=== PATIENT | female | born 1980 | race Native Hawaiian/Other Pacific Islander ===

== ENCOUNTER → 2017-08-28 | Outpatient (CLI) | payer OTHER, SELFPAY ==
[~2017-08-28] MED LIST: ALPR1 PO; AMOCLA875 PO; ANTOXYBENA RIGHTEAR; Advil200 M1 PO; Amoxicillin500 MG PO; BCP'S; Bactrim Ds Tab1 EACH PO; CEPH500 PO; CYCL10 PO; Ciprodex Otic7.5 ML RIGHTEAR; Clomipramine HC25 MG PO; Dazidox10 MG PO; FLEXERIL; GABA300 PO; GABAPENTIN; HYDACE10B PO; HYDACE5 PO; IBUP600 PO; IBUP800 PO; LAMO50 PO; LORA1 PO; NAPR500 PO; OXYACE5T PO; OXYC5 PO; PENVK500 PO; PHENTERMINE; PROACE100 PO; RANI150 PO; RXALBOI INH; TRAM50 PO; Tri-Sprintec1 EACH PO; VENL25 PO; VENLAFAXINE H37.5 MG PO; Verotin-Gr Cap1 EACH PO
== END | disposition home or self-care (01) ==
LOC: LAB EV 09:23
DX: R31.9 Hematuria, unspecified (principal)
CPT/HCPCS: 87086

== ENCOUNTER → 2017-11-13 | Outpatient (CLI) | payer OTHER | END | disposition home or self-care (01) | LOC: LAB EV 13:28 → LAB SHORT 13:28 | DX: N39.0 Urinary tract infection, site not specified (principal) | CPT/HCPCS: 87077; 87086; 87186 ==

== ENCOUNTER → 2019-01-22 | Outpatient (CLI) | payer OTHER ==
[2019-01-23 13:13] LABS: Campylobacter Sp Not Detected (NOT DETECT)
[2019-01-23 13:14] LABS: Adenovirus F 40/41 Not Detected (NOT DETECT); Astrovirus Not Detected (NOT DETECT); Cryptosporidium Not Detected (NOT DETECT); Cyclospora Cayetanensis Not Detected (NOT DETECT); E. Coli O157 Not Detected (NOT DETECT); Entamoeba Histolytica Not Detected (NOT DETECT); Enteroaggregative E. coli-EAEC Not Detected (NOT DETECT); Enteropathogenic E. coli-EPEC Detected (NOT DETECT); Enterotoxigenic E. coli-ETEC Not Detected (NOT DETECT); Giardia Lamblia Not Detected (NOT DETECT); Norovirus GI/GII Not Detected (NOT DETECT); Plesiomonas Shigelloides Not Detected (NOT DETECT); Rotavirus A Not Detected (NOT DETECT); Salmonella Sp Not Detected (NOT DETECT); Sapovirus Not Detected (NOT DETECT); Shiga Toxin-prod E. coli-STEC Not Detected (NOT DETECT); Shigella/Enteroin E. coli-EIEC Not Detected (NOT DETECT); Vibrio Cholerae Not Detected (NOT DETECT); Vibrio Sp Not Detected (NOT DETECT); Yersinia Enterocolitica Not Detected (NOT DETECT)
== END | disposition home or self-care (01) ==
LOC: LAB EV 20:00
PROVIDERS: General Practice
DX: K52.9 Noninfective gastroenteritis and colitis, unspecified (principal)
CPT/HCPCS: 0097U

== ENCOUNTER → 2019-01-22 | Outpatient (CLI) | payer OTHER ==
[2019-01-22 09:23] LABS: BASOPHILS ABSOLUTE AUTO 0.02 K/mm3 (0.00-0.23); BASOPHILS PERCENT AUTO 1 % (0-2); EOSINOPHILS ABSOLUTE AUTO 0.08 K/mm3 (0.00-0.68); EOSINOPHILS PERCENT AUTO 2 % (0-6); Hematocrit 41.6 % (33.0-51.0); Hemoglobin 14.2 g/dL (11.5-16.0); IMMATURE GRAN ABSOLUTE AUTO 0.01 K/mm3 (0.00-0.10); IMMATURE GRAN PERCENT AUTO 0 % (0-1); LYMPHOCYTES ABSOLUTE AUTO 1.21 K/mm3 (0.84-5.20); LYMPHOCYTES PERCENT AUTO 27 % (21-46); MONOCYTES ABSOLUTE AUTO 0.69 K/mm3 (0.16-1.47); MONOCYTES PERCENT AUTO 16 % (4-13); Mean Corpuscular HGB 31.3 pg (26.0-34.0); Mean Corpuscular HGB Conc 34.1 g/dL (31.5-36.5); Mean Corpuscular Volume 92 fL (80-100); Mean Platelet Volume 9.5 fL (9.1-12.4); NEUTROPHILS ABSOLUTE AUTO 2.41 K/mm3 (1.96-9.15); NEUTROPHILS PERCENT AUTO 55 % (41-73); Platelet Count 204 K/mm3 (150-400); RDW Coefficient Variation 11.6 % (11.7-14.2); RDW Standard Deviation 39.1 fL (35.1-46.3); Red Blood Cell Count 4.54 M/mm3 (3.80-5.20); White Blood Cell Count 4.42 K/mm3 (4.00-11.30)
[2019-01-22 09:34] LABS: Alanine Aminotransfer (ALT/SGP 42 U/L (12-78); Albumin, Blood 3.5 g/dL (3.4-5.0); Albumin/Globulin Ratio 0.9 (0.8-1.8); Alk Phos 66 U/L (40-126); Anion Gap 10 mmol/L (6-16); Aspartate Aminotrans (AST/SGOT 27 U/L (12-37); Bilirubin, Total 0.4 mg/dL (0.1-1.0); Blood Urea Nitrogen 8 mg/dL (8-24); CO2, Blood 24 mmol/L (21-32); Calcium, Blood 8.5 mg/dL (8.5-10.1); Chloride, Blood 104 mmol/L (98-108); Creatinine, Blood 0.73 mg/dL (0.40-1.00); Globulin, Blood 3.9 g/dL (2.2-4.0); Glomerular Filtration Rate >60 (60-); Glucose, Blood 96 mg/dL (70-99); Potassium, Blood 3.9 mmol/L (3.5-5.5); Sodium, Blood 138 mmol/L (136-145); Total Protein, Blood 7.4 g/dL (6.4-8.2)
== END | disposition home or self-care (01) ==
LOC: LAB EV 09:17 → LAB SHORT 09:17
PROVIDERS: General Practice
DX: K52.9 Noninfective gastroenteritis and colitis, unspecified (principal)
CPT/HCPCS: 80053; 85025

== ENCOUNTER 2019-07-02 09:26 | Observation (INO) | payer OTHER ==
[~2019-07-02] VITALS: Ht 177.8 cm; Wt 132.6 kg
[2019-07-02] MEDS ORDERED: SUMA25 PO (10:18)
[2019-07-02] MEDS ORDERED: B Complex-Foli1 EACH PO (10:19)
[2019-07-02] MEDS ORDERED: OXYC5 PO (10:19)
[2019-07-02] MEDS ORDERED: MAGNESIUM (10:20)
[2019-07-02] MEDS ORDERED: POTASSIUM (10:20)
[2019-07-02 10:22] LABS: Source, Urine Clean Catch
[2019-07-02 10:26] LABS: BASOPHILS ABSOLUTE AUTO 0.04 K/mm3 (0.00-0.23); BASOPHILS PERCENT AUTO 0 % (0-2); EOSINOPHILS ABSOLUTE AUTO 0.11 K/mm3 (0.00-0.68); EOSINOPHILS PERCENT AUTO 1 % (0-6); Hematocrit 41.7 % (33.0-51.0); Hemoglobin 14.4 g/dL (11.5-16.0); IMMATURE GRAN ABSOLUTE AUTO 0.03 K/mm3 (0.00-0.10); IMMATURE GRAN PERCENT AUTO 0 % (0-1); LYMPHOCYTES ABSOLUTE AUTO 2.16 K/mm3 (0.84-5.20); LYMPHOCYTES PERCENT AUTO 22 % (21-46); MONOCYTES PERCENT AUTO 8 % (4-13); Mean Corpuscular HGB 31.1 pg (26.0-34.0); Mean Corpuscular HGB Conc 34.5 g/dL (31.5-36.5); Mean Corpuscular Volume 90 fL (80-100); Mean Platelet Volume 9.1 fL (9.1-12.4); NEUTROPHILS ABSOLUTE AUTO 6.65 K/mm3 (1.96-9.15); NEUTROPHILS PERCENT AUTO 68 % (41-73); Platelet Count 244 K/mm3 (150-400); RDW Coefficient Variation 11.5 % (11.7-14.2); RDW Standard Deviation 37.8 fL (35.1-46.3); Red Blood Cell Count 4.63 M/mm3 (3.80-5.20); White Blood Cell Count 9.79 K/mm3 (4.00-11.30)
[2019-07-02 10:30] LABS: Bilirubin, Urine Neg (Neg); Blood, Urine 4+ (Neg); Glucose Qualitative, Urine Neg (Neg); Ketones, Urine 3+ (Neg); Leukocyte Esterase, Urine Neg (Neg); Nitrite, Urine Neg (Neg); Protein, Urine Neg (Neg); Urobilinogen, Urine NORM (Normal)
[2019-07-02 10:37] LABS: Appearance, Urine Clear (Clear); Color, Urine Yellow (P-Yellow)
[2019-07-02 10:39] LABS: Bacteria Few /hpf; Squamous Epithelial Cells Mod /hpf (Few); White Blood Cells, Urine 0-2 /hpf (0-5)
[2019-07-02 10:55] LABS: Alanine Aminotransfer (ALT/SGP 33 U/L (12-78); Albumin, Blood 3.7 g/dL (3.4-5.0); Albumin/Globulin Ratio 1.1 (0.8-1.8); Alk Phos 48 U/L (50-136); Anion Gap 7 mmol/L (6-16); Aspartate Aminotrans (AST/SGOT 17 U/L (12-37); Bilirubin, Total 0.5 mg/dL (0.1-1.0); Blood Urea Nitrogen 8 mg/dL (8-24); CO2, Blood 25 mmol/L (21-32); Calcium, Blood 8.9 mg/dL (8.5-10.1); Chloride, Blood 108 mmol/L (98-108); Creatinine, Blood 0.57 mg/dL (0.40-1.00); Globulin, Blood 3.5 g/dL (2.2-4.0); Glomerular Filtration Rate >60 (60-); Glucose, Blood 89 mg/dL (70-99); Potassium, Blood 4.1 mmol/L (3.5-5.5); Sodium, Blood 140 mmol/L (136-145); Total Protein, Blood 7.2 g/dL (6.4-8.2)
--- NOTE | 2019-07-02 14:48 | NUR ---
Patient up to Ambulate independently. Gait steady. Surgical site prepped with 2% Chlorhexidine cloth wipe. History, Chart, Medications and Allergies reviewed before start of procedure.Lungs clear T/O to Auscultation. Patient confirms NPO status and agrees with scheduled surgery. ALL BELONGINGS INCLUDING RING AND PHONE GIVEN TO . UP TO VOID. REMOVED TAMPON AND PLACED PALAK PAD WITH MADONNA PANTIES.
--- NOTE | 2019-07-02 19:00 | NUR ---
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 VSS. DRESSINGS TO ABD D&I. PATIENT STATES NAUSEA RESOLVED, TAKING PO SLOWLY. WILL REPORT TO PRINCESS MENDOZA.
--- NOTE | 2019-07-03 06:15 | NUR ---
SUMMARY PT VERB ADEQUATE PAIN CONTROL WITH PO MEDS. DENIES NAUSEA. VOIDING WITHOUT DIFF.AMBULATING WITH SBA.
[2019-07-03] MEDS ORDERED: Folic Acid-Vit1 EACH PO (08:55)
[2019-07-03] MEDS ORDERED: DOCU100 PO (08:56)
[2019-07-03] MEDS ORDERED: Percocet 5-3251 EACH PO ×2 (08:57→09:17)
--- NOTE | 2019-07-03 09:44 | NUR ---
PATIENT D/C'D HOME WITH SO AT THIS TIME. PAIN CONTROLLED PER PATIENT. TOLERATING PO. VOIDING. PATIENT STATES UNDERSTANDING OF MEDS, WOUND CARE, ACTIVITY, F/U APPT, ETC. NO ACUTE CHANGES OR C/O.
== END 2019-07-03 09:45 | disposition home or self-care (01) ==
LOC: ER 09:26 → SURS 13:50 → ER 13:50 → SURS 17:10
PROVIDERS: Emergency Medicine; ADMIT Surgery
PROC: 0DTJ4ZZ Resection of Appendix, Percutaneous Endoscopic Approach (ICD-10-PCS; principal; 2019-07-02 14:30)
PROC: 0WQF0ZZ Repair Abdominal Wall, Open Approach (ICD-10-PCS; principal; 2019-07-02 14:30)
DX: K35.80 Unspecified acute appendicitis (principal); E66.9 Obesity, unspecified; G89.29 Other chronic pain; F17.200 Nicotine dependence, unspecified, uncomplicated; Z68.41 Body mass index [BMI] 40.0-44.9, adult; Z88.8 Allergy status to other drugs, medicaments and biological substances
CPT/HCPCS: 36415; 74176; 80053; 81001; 81025; 83690; 85025; 88304; 96361; 96365; 96366; 96372; 96374; 96375; 96376; 99285-25; A9270-GY; G0378; J0694; J1100; J1650; J1885; J2250; J2270; J2405; J2704; J2710; J3010; J7120

== ENCOUNTER → 2019-07-08 | Outpatient (CLI) | payer OTHER ==
[~2019-07-08] MED LIST changes: +B Complex-Foli1 EACH PO; +DOCU100 PO; +Folic Acid-Vit1 EACH PO; +MAGNESIUM; +POTASSIUM; +Percocet 5-3251 EACH PO; +SUMA25 PO
[2019-07-09 14:07] LABS: HPV 16 Negative (Negative); HPV 18 Negative (Negative); HPV OTHER HR TYPES Negative (Negative)
== END | disposition home or self-care (01) ==
LOC: LAB 11:30 → LAB SHORT 11:30
PROVIDERS: Obstetrics & Gynecology
DX: Z01.419 Encounter for gynecological examination (general) (routine) without abnormal findings (principal)
CPT/HCPCS: 87624; G0123

== ENCOUNTER 2019-11-17 08:14 | Emergency (ER) | payer OTHER ==
[~2019-11-17] VITALS: Ht 177.8 cm; Wt 98.4 kg
== END 2019-11-17 10:27 | disposition home or self-care (01) ==
LOC: ER 08:14
DX: G43.909 Migraine, unspecified, not intractable, without status migrainosus (principal); F32.9 Major depressive disorder, single episode, unspecified; F41.9 Anxiety disorder, unspecified; M51.26 Other intervertebral disc displacement, lumbar region; Z88.8 Allergy status to other drugs, medicaments and biological substances; Z79.899 Other long term (current) drug therapy; Z87.891 Personal history of nicotine dependence
CPT/HCPCS: 96372-59; 99283-25; J0780; J1200; J1885

== ENCOUNTER 2020-06-06 13:16 | Emergency (ER) | payer OTHER ==
[~2020-06-06] VITALS: Ht 177.8 cm; Wt 129.3 kg
[2020-06-06 13:54] LABS: BASOPHILS ABSOLUTE AUTO 0.02 K/mm3 (0.00-0.23); BASOPHILS PERCENT AUTO 0 % (0-2); EOSINOPHILS ABSOLUTE AUTO 0.13 K/mm3 (0.00-0.68); EOSINOPHILS PERCENT AUTO 2 % (0-6); Hemoglobin 13.6 g/dL (11.5-16.0); IMMATURE GRAN ABSOLUTE AUTO 0.02 K/mm3 (0.00-0.10); IMMATURE GRAN PERCENT AUTO 0 % (0-1); LYMPHOCYTES ABSOLUTE AUTO 2.38 K/mm3 (0.84-5.20); LYMPHOCYTES PERCENT AUTO 31 % (21-46); MONOCYTES ABSOLUTE AUTO 0.61 K/mm3 (0.16-1.47); MONOCYTES PERCENT AUTO 8 % (4-13); Mean Corpuscular HGB 31.6 pg (26.0-34.0); Mean Corpuscular Volume 93 fL (80-100); Mean Platelet Volume 9.4 fL (9.1-12.4); NEUTROPHILS ABSOLUTE AUTO 4.41 K/mm3 (1.96-9.15); NEUTROPHILS PERCENT AUTO 58 % (41-73); Platelet Count 210 K/mm3 (150-400); RDW Coefficient Variation 11.4 % (11.7-14.2); RDW Standard Deviation 38.6 fL (35.1-46.3); White Blood Cell Count 7.57 K/mm3 (4.00-11.30)
[2020-06-06 14:12] LABS: Alanine Aminotransfer (ALT/SGP 24 U/L (12-78); Albumin, Blood 3.4 g/dL (3.4-5.0); Alk Phos 71 U/L (50-136); Anion Gap 4 mmol/L (6-16); Aspartate Aminotrans (AST/SGOT 25 U/L (12-37); Bilirubin, Total 0.2 mg/dL (0.1-1.0); Blood Urea Nitrogen 7 mg/dL (8-24); Bun/Creatinine Ratio 12.4 (12.0-20.0); CO2, Blood 29 mmol/L (21-32); Calcium, Blood 8.5 mg/dL (8.5-10.1); Chloride, Blood 106 mmol/L (98-108); Creatinine, Blood 0.56 mg/dL (0.40-1.00); Globulin, Blood 3.5 g/dL (2.2-4.0); Glomerular Filtration Rate >60 (60-); Glucose, Blood 94 mg/dL (70-99); Potassium, Blood 3.9 mmol/L (3.5-5.5); Sodium, Blood 139 mmol/L (136-145); Total Protein, Blood 6.9 g/dL (6.4-8.2)
== END 2020-06-06 14:27 | disposition left against medical advice (07) ==
LOC: ER 13:16
PROVIDERS: Emergency Medicine
DX: R51.9 Headache, unspecified (principal); Z53.21 Procedure and treatment not carried out due to patient leaving prior to being seen by health care provider
CPT/HCPCS: 36415; 80053; 85025

== ENCOUNTER 2020-11-06 06:10 | Emergency (ER) | payer OTHER ==
[~2020-11-06] VITALS: Ht 177.8 cm; Wt 129.7 kg
[2020-11-06] MEDS ORDERED: ZEBUTAL 50-3251 EAC1 PO (07:01)
[2020-11-06] MEDS ORDERED: PROM25 PO (07:01)
== END 2020-11-06 07:15 | disposition home or self-care (01) ==
LOC: ER 06:10
DX: G43.909 Migraine, unspecified, not intractable, without status migrainosus (principal)
CPT/HCPCS: 96372; 99283-25; A9270; J1885

== ENCOUNTER → 2021-01-31 | Outpatient (CLI) | payer OTHER ==
[~2021-01-31] MED LIST changes: +PROM25 PO; +ZEBUTAL 50-3251 EAC1 PO
[2021-02-02 13:11] LABS: HPV 16 Negative (Negative); HPV 18 Negative (Negative); HPV OTHER HR TYPES Negative (Negative)
== END | disposition home or self-care (01) ==
LOC: LAB SHORT 15:44 → LAB 15:44
PROVIDERS: Obstetrics & Gynecology
DX: Z01.419 Encounter for gynecological examination (general) (routine) without abnormal findings (principal)
CPT/HCPCS: 87624; G0123

== ENCOUNTER → 2023-04-03 | Outpatient (CLI) | payer OTHER ==
[~2023-04-03] MED LIST changes: +OMEP20ER PO
== END | disposition home or self-care (01) ==
LOC: LAB SHORT 13:01 → LAB 13:01
DX: R10.9 Unspecified abdominal pain (principal)
CPT/HCPCS: 87086

== ENCOUNTER 2023-04-17 18:33 | Emergency (ER) | payer OTHER ==
[~2023-04-17] VITALS: Ht 177.8 cm; Wt 136.1 kg
[2023-04-17 19:07] VITALS: BP 166/115
== END 2023-04-17 20:50 | disposition home or self-care (01) ==
LOC: ER 18:33
DX: M54.9 Dorsalgia, unspecified (principal); M54.2 Cervicalgia; V89.2XXA Person injured in unspecified motor-vehicle accident, traffic, initial encounter; Z87.891 Personal history of nicotine dependence
CPT/HCPCS: 72040; 72070; 99284-25; A9270

== ENCOUNTER → 2024-10-29 | Outpatient (CLI) | payer OTHER ==
[~2024-10-29] MED LIST changes: +AMOX500 PO; +METO10 PO
== END ==
LOC: LAB SHORT 08:34 → LAB 08:34
DX: J02.9 Acute pharyngitis, unspecified (principal)
CPT/HCPCS: 87081

== ENCOUNTER → 2025-04-13 | Outpatient (CLI) | payer OTHER | LOC: LAB 13:27 → LAB SHORT 13:27 | DX: N93.9 Abnormal uterine and vaginal bleeding, unspecified (principal) | CPT/HCPCS: 88305 ==

== ENCOUNTER 2025-05-31 09:04 | Day surgery (SDC) | payer OTHER ==
[2025-05-31] VITALS (17 sets, daily range): BP systolic 112–147; BP diastolic 68–94
[~2025-05-31] VITALS: Ht 177.8 cm; Wt 143.0 kg
[~2025-05-31 09:04] MED LIST changes: +ACET500 PO; +MEDR10 PO; +MOUNJARO2.5 MG/0.5 SC; +ONDA4 PO; +QULIPTA60 MG PO; +RIZATRIPTAN10 MG SL
[2025-05-31] MEDS ORDERED: CeFAZolin Sodium 3,000 MG in NS 100 ML IV SCH (09:20)
[2025-05-31] MEDS ORDERED: CeFAZolin Sodium 3,000 MG VIAL ONE ×2 (09:26→15:38)
--- NOTE | 2025-05-31 10:01 | NUR ---
History, Chart, Medications and Allergies reviewed before start of procedure. Patient confirms NPO status and agrees with scheduled surgery. Pre-Op teaching done. Pt verbalizes understanding. Patient reports completing Chlorhexadine shower X2 prior to admission to hospital. Lungs clear T/O to Auscultation.
[2025-05-31] MEDS ORDERED: FentaNYL Citrate 50 MCG/ML 2 ML Injection ONE ×4 (10:23→19:47)
[2025-05-31] MEDS ORDERED: FentaNYL Citrate 50 MCG/ML 2 ML Injection IV PRN ×2 (10:25→10:30)
[2025-05-31] MEDS ORDERED: HYDROmorphone HCl/Pf 1MG SYR IV PRN ×2 (10:25→19:50)
[2025-05-31] MEDS ORDERED: Rocuronium Bromide 10 MG/ML 5ML Injection IV ONE ×3 (10:27→15:33)
[2025-05-31] MEDS ORDERED: Midazolam HCl 1MG / ML 2ML Vial IV PRN (10:30)
[2025-05-31] MEDS ORDERED: Ondansetron HCl 2 MG / ML 2ML Vial IV PRN ×2 (10:30→19:55)
[2025-05-31] MEDS ORDERED: Albuterol 2.5 MG/3 ML VIAL INH PRN (10:30)
[2025-05-31] MEDS ORDERED: Bupivacaine 0.5% W/EPI 1:200000 SDV 30 ML Vial ONE (11:53)
[2025-05-31] MEDS ORDERED: Ondansetron HCl 2 MG / ML 2ML Vial ONE (12:55)
[2025-05-31] MEDS ORDERED: Dexamethasone Sod Phos 10 MG/ML 1ML VIAL ONE (12:55)
[2025-05-31] MEDS ORDERED: Sugammadex Sodium 200 MG/2ML SDV (100 MG/ML) ONE (13:24)
[2025-05-31] MEDS ORDERED: Phenylephrine HCl 100 MCG/ML-NS 10MLSYR (1MG/10ML) IV ONE (16:54)
[2025-05-31] MEDS ORDERED: HYDROmorphone HCl/Pf 1MG SYR ONE ×2 (19:27→19:47)
[2025-05-31] MEDS ORDERED: Metoclopramide HCl 5MG / ML 2ML Vial IV PRN (19:45)
[2025-05-31] MEDS ORDERED: FLU VACC TS2025-26(6MOS UP)/PF 45 MCG/0.5 ML SYRINGE IM SCH (19:50)
[2025-05-31] MEDS ORDERED: Ketorolac Tromethamine 30mg Vial ONE (19:54)
[2025-05-31] MEDS ORDERED: Naloxone HCl 0.4MG / ML 1ML Vial IV PRN (19:55)
[2025-06-01] MEDS ORDERED: Ketorolac Tromethamine 30mg Vial IV SCH
[2025-06-01 04:10] VITALS: BP 128/78
[2025-06-01 05:12] LABS: BASOPHILS ABSOLUTE AUTO 0.02 K/mm3 (0.00-0.23); BASOPHILS PERCENT AUTO 0 % (0-2); EOSINOPHILS ABSOLUTE AUTO 0.00 K/mm3 (0.00-0.68); EOSINOPHILS PERCENT AUTO 0 % (0-6); Hematocrit 34.4 % (33.0-51.0); Hemoglobin 11.7 g/dL (11.5-16.0); IMMATURE GRAN ABSOLUTE AUTO 0.04 K/mm3 (0.00-0.10); IMMATURE GRAN PERCENT AUTO 0 % (0-1); LYMPHOCYTES ABSOLUTE AUTO 1.44 K/mm3 (0.84-5.20); LYMPHOCYTES PERCENT AUTO 14 % (21-46); MONOCYTES ABSOLUTE AUTO 0.88 K/mm3 (0.16-1.47); MONOCYTES PERCENT AUTO 8 % (4-13); Mean Corpuscular HGB Conc 34.0 g/dL (31.5-36.5); Mean Corpuscular Volume 92 fL (80-100); NEUTROPHILS ABSOLUTE AUTO 8.31 K/mm3 (1.96-9.15); NEUTROPHILS PERCENT AUTO 78 % (41-73); NRBC ABSOLUTE 0.00 K/mm3 (0.00-0.02); NRBC Auto 0.0 /100 WBC (0.0-0.2); Platelet Count 213 K/mm3 (150-400); RDW Coefficient Variation 12.0 % (11.7-14.2); RDW Standard Deviation 40.6 fL (35.1-46.3)
--- NOTE | 2025-06-01 05:37 | NUR ---
SHIFT SUMMARY POD 1 LAP HYSTER. A&O X4. 5 LAP SITES C/D/I. PAIN MANAGED WELL PER EMAR. PT TOLERATING PO INTAKE. PT DENIES N&V. CONT PULSE OX IN PLACE SPO2 96% ON RA. PT AMBULATING TO BATHROOM W/ SBA. PT RESTING IN BED, RESPIRATIONS EVEN AND UNLABORED. CALL LIGHT WITHIN REACH.
[2025-06-01 07:26] VITALS: BP 123/67
[2025-06-01] MEDS ORDERED: Enoxaparin 40 MG/0.4 ML SYR SC SCH (09:00)
[2025-06-01] MEDS ORDERED: Polyethylene Glycol 3350 17 gm PO SCH (09:00)
[2025-06-01] MEDS ORDERED: MIRALAX17 GM PO (14:51)
--- NOTE | 2025-06-01 15:17 | NUR ---
DISCHARGE SUMMARY POD 1 LAP HYSTER W/ HERNIA REPAIR AND TIFFANY. VSS. PAIN MANAGED W/ PRESCRIBED MEDICATION. X5 LAP SITES C/D/I. SCANT VAGINAL BLEEDING. VOIDING. TOLERATING PO INTAKE. AMBULATING W/ SBA. PERSONAL BELONGINGS W/ PATIENT. WRITTEN AND VERBAL EDUCATION PROVIDED - PATIENT STATES UNDERSTANDING. IV REMOVED. PATIENTs SPOUSE TO TRANSPORT HER HOME. PATIENT TRANSFERRED TO PERSONAL VEHICLE VIA AT APPROX 1515.
== END 2025-06-01 15:15 | disposition home or self-care (01) ==
LOC: ORSCMMR 09:04 → ORD 10:00 → ORSCMMR 10:00 → ORD 10:30 → ORSCMMR 11:00 → SURS 20:00 → ORSCMMR 06-01 15:15
PROVIDERS: Obstetrics & Gynecology
PROC: 0DNU4ZZ Release Omentum, Percutaneous Endoscopic Approach (ICD-10-PCS; principal; 2025-05-31 11:00)
PROC: 0UT7FZZ Resection of Bilateral Fallopian Tubes, Via Natural or Artificial Opening With Percutaneous Endoscopic Assistance (ICD-10-PCS; principal; 2025-05-31 11:00)
PROC: 0UT9FZZ Resection of Uterus, Via Natural or Artificial Opening With Percutaneous Endoscopic Assistance (ICD-10-PCS; principal; 2025-05-31 11:00)
DX: N93.9 Abnormal uterine and vaginal bleeding, unspecified (principal); N80.03 Adenomyosis of the uterus; Q50.5 Embryonic cyst of broad ligament; N99.4 Postprocedural pelvic peritoneal adhesions; K21.9 Gastro-esophageal reflux disease without esophagitis; F41.9 Anxiety disorder, unspecified; F32.A Depression, unspecified; E66.01 Morbid (severe) obesity due to excess calories; Z68.42 Body mass index [BMI] 45.0-49.9, adult; Z79.899 Other long term (current) drug therapy
CPT/HCPCS: 36415; 85025; 86850; 86900; 86901; 88307; 94762; A9270; J0690; J1100; J1171; J1650; J1885; J2250; J2371; J2405; J2704; J3010; J7120

== ENCOUNTER → 2025-06-14 | Outpatient (CLI) | payer OTHER ==
[~2025-06-14] MED LIST changes: +MIRALAX17 GM PO
[2025-06-14 19:17] LABS: Bacterial Vaginosis PCR Negative (NEGATIVE); Candida Group, PCR NOT DETECTED (NOT DETECT); Candida glabrata-krusei, PCR NOT DETECTED (NOT DETECT)
== END | disposition home or self-care (01) ==
LOC: LAB SHORT 14:34 → LAB 14:34
PROVIDERS: Obstetrics & Gynecology
DX: N89.8 Other specified noninflammatory disorders of vagina (principal)
CPT/HCPCS: 81515